=== PATIENT | female | born 1960 | race Caucasian/White ===

== ENCOUNTER 2017-12-06 01:27 | Observation (INO) ==
[2017-12-06] MEDS ORDERED: Naloxone 0.4 MG/ML INJ IVP PRN (03:53)
[2017-12-06] MEDS ORDERED: Acetaminophen 325 MG TABLET PO PRN (03:55)
[2017-12-06] MEDS ORDERED: 0.9 % Sodium Chloride 1,000 ML IVC SCH (04:00)
[2017-12-06] MEDS: traMADol 50 MG TABLET PO PRN ×2 (04:31→13:28)
--- NOTE | 2017-12-06 04:51 | Internal Med History&Physical ---
Date of Encounter: 12/07/17 Time of Encounter: 04:51 Internal Medicine - H&P: HPI Chief complaint: Right Knee Pain History of present illness: Ms. Muhammad is a 57 year old female with a past medical history of hypertension, hyperlipidemia, COPD, diabetes and postoperative day 2 status post right total knee replacement who presents with right knee pain. Patient states that she was doing well the day after her surgery. She was able to ambulate with a walker prior to discharge. She states that upon arrival to her home she was unable to get out of the car because of excruciating pain in her right knee. Patient was helped into her home with the aid of her family. She continued to have persistent pain despite pain medication. She reached out to with her orthopedic surgeon who advised her to come back in. Patient subsequently called EMS because her family was unable to get her back into the car because of the pain. Patient denies any fever, chills or shortness of breath. Past Med Surg Social Fam HX - Past Medical History Medical history: CHF, COPD, diabetes, thyroid disease Psychiatric history: anxiety, depression - Past Surgical History Surgical History: knee replacement, other Additional surgical history: uterine surgery, tubal, tonsils, adnoids, gallbladder - Social History Smoking Status: Current every day smoker Alcohol use: none Drug use: none - Family History Mother Living Status: Hx Family Cardiac Disorders: Yes (stroked, CAD) Hx Family Endocrine Disorder: Yes (DM) Internal Medicine - H&P: Meds Aspirin Enteric Coated [Aspirin EC] 325 mg PO BID #20 tablet. 12/04/17 [Rx] Breo Ellipta 200-25 Mcg INH 27.5 mcg NS BID 12/04/17 [History] Docusate [Colace] 100 mg PO DAILY PRN 12/04/17 [History] Duloxetine HCl [Cymbalta] 60 mg PO DAILY 12/04/17 [History] Furosemide [Lasix] 20 mg PO DAILY 12/04/17 [History] Gabapentin [Neurontin] 800 mg PO TID 12/04/17 [History] Levothyroxine [Synthroid] 125 mcg PO DAILY 12/04/17 [History] Losartan Potassium 25 mg PO DAILY 12/04/17 [History] Omeprazole [PriLOSEC] 20 mg PO DAILY 12/04/17 [History] OxyCODONE Immed Rel [Roxicodone 5 MG] 5 mg PO Q6HR PRN 5 Days #20 tablet [Rx] Senna-S Laxative Tablet 60 mg PO DAILY PRN 12/04/17 [History] Tiotropium [Spiriva] 18 mcg .ROUTE DAILY 12/04/17 [History] Trulicity 1.5 mg SQ QWEEK 12/04/17 [History] cloNIDine HCl [CloNIDine HCl] 0.1 mg PO HS 12/04/17 [History] 3 Allergy/AdvReac Type Severity Reaction Status Date / Time capsaicin Allergy See Verified 11/28/17 10:19 Comments lisinopril Allergy Dizziness Verified 11/28/17 10:19 All Systems PM: A 10-system review of systems was performed and is negative for pertinent findings except as documented above in the HPI. - Constitutional Constitutional: no chills, no fever(s), no night sweats - EENT Eyes: no change in vision, no discharge, no pain, no photophobia Ears: no ear discharge, no ear pain, no tinnitus Nose, mouth and throat: no dysphagia, no nasal discharge, no neck pain, no sore throat - Cardiovascular Cardiovascular ROS IM: no chest pain, no diaphoresis, no dyspnea, no lightheadedness, no palpitations, no syncope - Respiratory Respiratory: no cough, no dyspnea, no wheezing, no excessive phlegm production - Gastrointestinal Gastrointestinal: no abdominal pain, no diarrhea, no hematemesis, no hematochezia, no melena, no nausea, no vomiting - Genitourinary Genitourinary: no change in urinary stream, no dysuria, no flank pain, no hematuria - Musculoskeletal Musculoskeletal ROS IM: no numbness, no tingling - Integumentary Integumentary IM: no rash, no unusual bruising - Neurological Neurological ROS: no confusion, no convulsions, no focal weakness, no numbness, no tingling, no tremor(s) - Hematologic/Lymphatic Hematologic/Lymphatic: no easy bruising - Constitutional Vitals: Temp Pulse Resp BP Pulse Ox 98.9 F 81 18 143/84 92 12/06/17 04:32 12/06/17 04:32 12/06/17 04:32 12/06/17 04:32 12/06/17 04:32 Exam: General: Alert and oriented 3; lying in bed in no acute distress Skin:Normal color, no rash, no lesions. HEENT:EOM, pupils equal, round and reactive. Cardiovascular:Normal S1 & S2, no rubs, murmurs or gallops. No JVD. Pulse regular. Lungs:Normal breath sounds, no wheezes or crackles. Abdomen:Soft, non-tender, no rigidity. Extremities: Right knee appears erythematous, warm and mildly edematous. There is some oozing from the surgical incision site. Knee is tender to palpation. Patient has good pulses in the lower extremities. Neurological:Normal cognition and motor skills. Pulses:Carotid and radial pulses normal +2. Rest of the physical exam is non contributory Internal Med - H&P Results - Labs CBC & Chem 7: 12/06/17 04:26 12/06/17 04:26 - Assessment and plan (1) Status post total right knee replacement Current Visit: No Status: Acute Assessment and plan: Postop day 2 status post right total knee replacement now presenting with excruciating pain involving the same knee. Knee warm to palpation and mildly edematous with some oozing of blood. Patient afebrile but does have a elevated WBC of 17. This maybe reactionary however cannot r/o infection at this time though time course appears to be too acute. We will obtain a CT scan of the knee. Hold antibiotics until then. Pain control. Ortho to see patient in the AM (2) COPD (chronic obstructive pulmonary disease) Current Visit: No Status: Chronic Assessment and plan: No evidence of acute exacerbation. Stable Qualifiers: COPD type: unspecified COPD Qualified Code(s): J44.9 - Chronic obstructive pulmonary disease, unspecified (3) Type 2 diabetes mellitus Current Visit: No Status: Acute Assessment and plan: Blood glucose checks. Insulin sliding scale Qualifiers: Diabetes mellitus intermediate insulin use: unspecified termite inspector insulin use status Diabetes mellitus complication status: without complication Qualified Code(s): E11.9 - Type 2 diabetes mellitus without complications (4) Hypertension Current Visit: No Status: Chronic Qualifiers: Hypertension type: unspecified Qualified Code(s): I10 - Essential (primary ) hypertension (5) DVT prophylaxis Current Visit: Yes Status: Acute Assessment and plan: Pneumatic compression devices - Time Spent With Patient Total time spent is greater than 50% in coordination of care (as documented) at patient's floor/unit and/or counseling patient:
[2017-12-06 05:00] LABS: Basophils % 0.3 %; Eosinophils % 0.3 %; Immature Granulocytes % 0.7 % (0-4); Mean Corpuscular Volume 62.6 fL (83.0-100.0); Monocytes % 11.4 %
[2017-12-06 05:01] LABS: Basophils # 0.1 K/mcL (0.0-0.2); Eosinophils # 0.1 K/mcL (0.0-0.6); Hematocrit 30.1 % (35.3-44.9); Lymphocytes # 3.4 K/mcL (0.6-4.6); Mean Corpuscular HGB Conc 29.9 g/dL (31.6-35.5); Mean Corpuscular Hemoglobin 18.7 pg (28.0-33.3); Mean Platelet Volume 10.5 fL (9.4-12.4); Neutrophils # 12.1 K/mcL (1.6-8.9); Platelet Count 232 K/mcL (140-400); Red Blood Count 4.81 M/mcL (3.82-4.97); Red Cell Distribution Width 19.6 % (11.5-14.5); Segmented Neutrophils % 68.3 %
[2017-12-06 05:05] LABS: Prothrombin Time 11.1 Seconds (9.4-12.1)
[2017-12-06 05:20] LABS: Platelet Estimate Normal (Normal)
[2017-12-06] MEDS ORDERED: Isovue-370 500 ML INFUS..BTL IV ONE (05:20)
[2017-12-06 05:21] LABS: Anisocytosis 1+ (Not Present); Microcytosis Present (Not Present)
[2017-12-06 05:34] LABS: Alanine Aminotransferase 12 Units/L (7-52); Albumin 4.1 g/dL (3.5-5.7); Alkaline Phosphatase 96 Units/L (34-104); Aspartate Amino Transferase 14 Units/L (13-39); BUN/Creatinine Ratio 17 (6-26); Bilirubin,Total 0.3 mg/dL (0.3-1.0); Blood Urea Nitrogen 17 mg/dL (6-20); Calcium 8.9 mg/dL (8.6-10.3); Carbon Dioxide 27 mEq/L (23-29); Chloride 105 mEq/L (98-107); Globulin 2.1 g/dL (2.4-3.5); Glucose 133 mg/dL (70-105); Osmolality,Calculated 291 (280-300); Potassium 3.4 mEq/L (3.5-5.1); Sodium 139 mEq/L (136-145); Total Protein 6.2 g/dL (6.4-8.9); eGFR For Non-African Americans 59 (> 60)
--- NOTE | 2017-12-06 07:58 | Event Note ---
Date of Encounter: 12/06/17 Time of Encounter: 09:45 Ms Muhammad was admitted earlier this AM with severe R knee pain. She is s/p TKR. At this time she is still having a lot of pain. She has some swelling in her leg. Plan Ortho eval Duplex to r/o DVT Pain control.
[2017-12-06] MEDS: *HR* OxyCODONE Immed Rel 5 MG TABLET PO PRN ×2 (09:58→21:35)
--- NOTE | 2017-12-06 14:51 | Orthopedics Progress Note ---
Date of Encounter: 12/06/17 Time of Encounter: 14:44 Subjective Principal diagnosis: post-op pain Interval history: The patient was discharged late yesterday evening on postoperative #1 status post a right total knee arthroplasty. On the right home the pain became more severe and she is unable to bear weight. She was taken to the [facility] and was transferred back For further evaluation. Patient still reports the pain today. Reports no other complications and no falls on the ride home. Right lower extremity: Dressings in place and the patient clean dry and intact with mild spotting, mild swelling, positive tenderness palpation around the knee , calves are soft and nontender, neurovascularly intact distally. Range of motion of the knee 10 degrees to 40 degrees, limited by pain. CT scan: implants well fixed Doppler study: negative Assessment: Postoperative day #2 status post right total knee arthroplasty with well fixed implants. Patient experiencing acute postoperative pain increased once block fully wore off. Plan: We will add Toradol to her oxycodone Recommend PT see the patient again for range of motion and ambulation. Recommend discharge home tomorrow. Objective Vital signs: Vital Signs Temp Pulse Resp BP Pulse Ox 12/06/17 11:44 98.0 F 88 16 160/68 95 12/06/17 07:10 98.9 F 82 16 172/68 94 12/06/17 04:32 98.9 F 81 18 143/84 92 Intake and Output 12/05/17 12/06/17 12/06/17 23:59 07:59 15:59 Other: Weight 103.1 kg Blood Glucose* 108 112 Patient Weight 12/06/17 23:59 Weight 103.1 kg - Labs CBC & BMP: 12/06/17 04:26 12/06/17 04:26 Labs: Abnormal lab results WBC 17.7 K/mcL (4.3-11.1) H 12/06/17 04:26 Hgb 9.0 g/dL (11.5-15.4) L D 12/06/17 04:26 Hct 30.1 % (35.3-44.9) L 12/06/17 04:26 MCV 62.6 fL (83.0-100.0) L 12/06/17 04:26 MCH 18.7 pg (28.0-33.3) L 12/06/17 04:26 MCHC 29.9 g/dL (31.6-35.5) L 12/06/17 04:26 RDW 19.6 % (11.5-14.5) H 12/06/17 04:26 Neutrophils # 12.1 K/mcL (1.6-8.9) H 12/06/17 04:26 Monocytes # 2.0 K/mcL (0.0-1.3) H 12/06/17 04:26 Anisocytosis 1+ (Not Present) A 12/06/17 04:26 Microcytosis Present (Not Present) A 12/06/17 04:26 Potassium 3.4 mEq/L (3.5-5.1) L 12/06/17 04:26 Est GFR (Non-Af Amer) 59 (> 60) L 12/06/17 04:26 Glucose 133 mg/dL (70-105) H 12/06/17 04:26 POC Glucose 112 mg/dL (70-99) H 12/06/17 11:41 Serum Total Protein 6.2 g/dL (6.4-8.9) L 12/06/17 04:26 Globulin 2.1 g/dL (2.4-3.5) L 12/06/17 04:26 Consult Discharge Plan - Plan Referrals: Ralph Coughlin, T[employer] STAVE ASSEMBLER [Primary Care Provider] -
[2017-12-06] MEDS: Ketorolac 30 MG/ML VIAL IVP PRN (15:49)
[2017-12-07] MEDS: Ketorolac 30 MG/ML VIAL IVP PRN (03:11)
[2017-12-07] MEDS: traMADol 50 MG TABLET PO PRN (03:39)
[2017-12-07] MEDS: *HR* OxyCODONE Immed Rel 5 MG TABLET PO PRN (06:29)
[2017-12-07 07:12] VITALS: BP 150/69
[2017-12-07 07:20] LABS: Hemoglobin 8.7 g/dL (11.5-15.4); Mean Platelet Volume 10.2 fL (9.4-12.4)
[2017-12-07 07:22] LABS: Hematocrit 30.2 % (35.3-44.9); Immature Platelets 5.5 % (1.1-6.1); Mean Corpuscular HGB Conc 28.8 g/dL (31.6-35.5); Mean Corpuscular Hemoglobin 18.2 pg (28.0-33.3); Mean Corpuscular Volume 63.3 fL (83.0-100.0); Red Blood Count 4.77 M/mcL (3.82-4.97); Red Cell Distribution Width 19.1 % (11.5-14.5)
[2017-12-07 07:43] LABS: BUN/Creatinine Ratio 13 (6-26); Blood Urea Nitrogen 12 mg/dL (6-20); Calcium 8.8 mg/dL (8.6-10.3); Carbon Dioxide 27 mEq/L (23-29); Chloride 107 mEq/L (98-107); Glucose 127 mg/dL (70-105); Magnesium 2.2 mg/dL (1.6-2.6); Osmolality,Calculated 291 (280-300); Potassium 3.6 mEq/L (3.5-5.1); Sodium 140 mEq/L (136-145); eGFR For Non-African Americans > 60 (> 60)
--- NOTE | 2017-12-07 10:39 | Discharge Summary ---
- NOTES TO OUTPATIENT PROVIDER Notes to Outpatient Provider: Pt discharged following R TKA. Returned the next day due to pain. Seen by orthopedics and no acute issues. Seen by PT and OT. Recommended SNF and she declines and wants to go home. Date of Encounter: 12/07/17 Time of Encounter: 10:20 - Discharge Diagnosis (1) Pain in knee region after total knee replacement Priority: Primary Status: Acute Qualifiers: Encounter type: subsequent encounter Qualified Code(s): T84.84XD - Pain due to internal orthopedic prosthetic devices, implants and grafts, subsequent encounter; Z96.659 - Presence of unspecified artificial knee joint (2) Status post total right knee replacement Priority: Secondary Status: Acute (3) Hypertension Priority: Secondary Status: Chronic Qualifiers: Hypertension type: essential hypertension Qualified Code(s): I10 - Essential (primary) hypertension (4) COPD (chronic obstructive pulmonary disease) Priority: Secondary Status: Chronic Qualifiers: COPD type: unspecified COPD Qualified Code(s): J44.9 - Chronic obstructive pulmonary disease, unspecified (5) Type 2 diabetes mellitus Priority: Secondary Status: Chronic Qualifiers: Diabetes mellitus terminal worker insulin use: without terminal worker use Diabetes mellitus complication status: without complication Qualified Code(s): E11.9 - Type 2 diabetes mellitus without complications (6) Tobacco use Priority: Secondary Status: Chronic Hospital course: Ms. Muhammad is a 57 year old female with recent R TKA presented to ED with severe pain and was placed in observation. Ms Muhammad had R TKA on and went home on Friday. She developed increased pain and returned to ED. She was placed in observation. She was evaluated by orthopedics and placed on pain meds. She had duplex negative for DVT. Today she is feeling somewhat better. She was seen by PT and recommended SNF but she does not want to go. She is afebrile and ready for discharge home. She has pain meds prescribed when she left on Friday. - Time Spent with Patient Total time spent providing and/or coordinating discharge services: - Discharge Medications Home Medications: Aspirin Enteric Coated [Aspirin EC] 325 mg PO BID #20 tablet. 12/04/17 [Rx] Breo Ellipta 200-25 Mcg INH 27.5 mcg NS BID 12/04/17 [History] Docusate [Colace] 100 mg PO DAILY PRN 10/11/18 [History] Duloxetine HCl [Cymbalta] 60 mg PO DAILY 12/04/17 [History] Furosemide [Lasix] 20 mg PO DAILY 12/04/17 [History] Gabapentin [Neurontin] 800 mg PO TID 12/04/17 [History] Levothyroxine [Synthroid] 125 mcg PO DAILY 12/04/17 [History] Losartan Potassium 25 mg PO DAILY 12/04/17 [History] Omeprazole [PriLOSEC] 20 mg PO DAILY 12/04/17 [History] OxyCODONE Immed Rel [Roxicodone 5 MG] 5 mg PO Q6HR PRN 5 Days #20 tablet [Rx] Senna-S Laxative Tablet 60 mg PO DAILY PRN 12/04/17 [History] Tiotropium [Spiriva] 18 mcg .ROUTE DAILY 12/04/17 [History] Trulicity 1.5 mg SQ QWEEK 12/04/17 [History] cloNIDine HCl [CloNIDine HCl] 0.1 mg PO HS 12/04/17 [History] Acetaminophen [Tylenol] 650 mg PO Q6HR PRN tablet 12/07/17 [Rx] Allergies/Adverse Reactions: 3 Allergy/AdvReac Type Severity Reaction Status Date / Time capsaicin Allergy See Verified 11/28/17 10:19 Comments lisinopril Allergy Dizziness Verified 11/28/17 10:19 Date of admission: 12/06/17 03:38 Primary care physician: Ralph Coughlin CNP Consults: 12/06/17 05:19 Consult to Orthopedic Surgery [CONS] Routine Consulting Provider: Orthoped[facility] Reason for Consult: Right knee pain status post right total knee replacement Call Completed: No 12/06/17 18:26 Consult to Occupational Therapy [CONS] Routine Comment: Evaluate, develop and implement POC Reason for Consult: EVAL AND TREAT, RECENT RIGHT TOTAL KNEE REPLACEMENT Does patient have active BEDREST order?: No Is patient medically & hemodynamically stable?: Yes Consult to Physical Therapy [CONS] Routine Comment: Evaluate, develop and implement POC Reason for Consult: EVAL AND TREAT FOR RECENT RIGHT KNEE REPLACEMENT Does patient have active BEDREST order?: No Is patient medically & hemodynamically stable?: Yes Discharging clinician: Sander Avendaño Anticipated date of discharge: 12/07/17 - Constitutional Vitals: Temp Pulse Resp BP Pulse Ox 98.4 F 79 16 150/69 92 12/07/17 07:11 12/07/17 07:11 12/07/17 07:11 12/07/17 07:11 12/07/17 07:11 General appearance: Present: A&O X 3, pleasant Exam: See below - Head Head exam: Present: atraumatic, normocephalic - Eye Eye exam: Present: EOMI, conjuntiva pink - ENT ENT exam: Present: mucous membranes moist - Respiratory Respiratory exam: Present: CTAB. Absent: rales, rhonchi, wheezes - Cardiovascular Cardiovascular exam: Present: RRR. Absent: systolic murmur, tachycardia - GI/Abdominal GI/Abdominal exam: Present: soft. Absent: tenderness - Extremities Exam Extremities exam: Present: tenderness, warm - Neurological Exam Neurological exam: Present: alert, oriented X3, no focal deficits - Skin Skin exam: Present: dry, warm - Patient Status Disposition: Home Health Service Condition: Good Functional capacity at discharge: independent ambulation Overall status at discharge: patient is progressing back to baseline - Discharge Instructions Instructions: Heart Failure (DC), Diabetes Mellitus Type 2 in Adults (DC), Chronic Obstructive Pulmonary Disease (DC), Chronic Hypertension (DC), Anemia ( GEN) Follow Up With: Ralph Coughlin CNP [Primary Care Provider] - - Diet and Activity Activity: as per physical therapy, increase activity as tolerated Diet: advance to your usual diet
--- NOTE | 2017-12-07 10:43 | Physician Discharge Referral ---
Home Health/Hosp Referral Info Transfer to: Home Health Provider in Charge Post Discharge: PCP - Diagnosis (1) Pain in knee region after total knee replacement Priority: Primary Status: Acute (2) Status post total right knee replacement Priority: Secondary Status: Acute (3) Hypertension Priority: Secondary Status: Chronic (4) COPD (chronic obstructive pulmonary disease) Priority: Secondary Status: Chronic (5) Type 2 diabetes mellitus Priority: Secondary Status: Acute (6) Tobacco use Priority: Secondary Status: Chronic - Respiratory Orders None Smoking Cessation: Smoking cessation has been advised. For more information, call the [place] Tobacco Quit Line at 8-697-YKMQ-NOW. - Diet/Nutrition Diet/Nutrition Orders: Cardiac, No Concentrated Sweets - Activity Activity Orders: Ambulate - Services Needed Following services are medically necessary services: Physical Therapy, Occupational Therapy - Transfer Medications Home Medications: Aspirin Enteric Coated [Aspirin EC] 325 mg PO BID #20 tablet.dr 12/04/17 [Rx] Breo Ellipta 200-25 Mcg INH 27.5 mcg NS BID 12/04/17 [History] Docusate [Colace] 100 mg PO DAILY PRN 12/04/17 [History] Duloxetine HCl [Cymbalta] 60 mg PO DAILY 12/04/17 [History] Furosemide [Lasix] 20 mg PO DAILY 12/04/17 [History] Gabapentin [Neurontin] 800 mg PO TID 12/04/17 [History] Levothyroxine [Synthroid] 125 mcg PO DAILY 12/04/17 [History] Losartan Potassium 25 mg PO DAILY 12/04/17 [History] Omeprazole [PriLOSEC] 20 mg PO DAILY 12/04/17 [History] OxyCODONE Immed Rel [Roxicodone 5 MG] 5 mg PO Q6HR PRN 5 Days #20 tablet [Rx] Senna-S Laxative Tablet 60 mg PO DAILY PRN 12/04/17 [History] Tiotropium [Spiriva] 18 mcg .ROUTE DAILY 12/04/17 [History] Trulicity 1.5 mg SQ QWEEK 12/04/17 [History] cloNIDine HCl [CloNIDine HCl] 0.1 mg PO HS 12/04/17 [History] Acetaminophen [Tylenol] 650 mg PO Q6HR PRN tablet 12/07/17 [Rx] Allergies/Adverse Reactions: 3 Allergy/AdvReac Type Severity Reaction Status Date / Time capsaicin Allergy See Verified 11/28/17 10:19 Comments lisinopril Allergy Dizziness Verified 11/28/17 10:19 Certification: Further, I certify that my clinical findings support that this patient is homebound (i.e. absences from home require considerable and taxing effort and are for medical reasons or restoration services or infrequently or short duration when for other reasons) because: Homebound Reason: Post-surgery restriction and or conditions limit ability to leave home Attestation: My signature below is to certify that this patient is under my care and that I, or nurse practitioner, or a physician's assistant counsel working with me, has a face-to -face encounter with this patient.
--- NOTE | 2017-12-07 10:56 | Orthopedics Progress Note ---
Date of Encounter: 12/07/17 Time of Encounter: 10:53 Subjective Principal diagnosis: post-op pain Interval history: Patient reports that the pain is improved although still significant. She had an evaluation with PT this morning who recommended acute care rehabilitation. Patient has declined this and wants to go home. Home health therapy is scheduled for tomorrow morning. Right lower extremity: Dressings in place which was changed, and Tj wrap is in place with minimal spotting at the distal end of the incision line. mild swelling, positive tenderness palpation around the knee, calves are soft and nontender, neurovascularly intact distally. Range of motion of the knee 0 degrees to 50 degrees, limited by pain. CT scan: implants well fixed Doppler study: negative Assessment: Postoperative day #3 status post right total knee arthroplasty with well fixed implants. Patient experiencing acute postoperative pain. Plan: The patient like to go home now. Recommend discharge home. She states she has enough help at home and believe she will improve with therapy tomorrow. Objective Vital signs: Vital Signs Temp Pulse Resp BP Pulse Ox 12/07/17 07:11 98.4 F 79 16 150/69 92 12/07/17 03:47 98.7 F 89 20 173/60 97 12/06/17 22:31 98.1 F 88 17 187/77 96 12/06/17 19:09 98.4 F 89 18 161/65 96 12/06/17 11:44 98.0 F 88 16 160/68 95 Intake and Output 12/06/17 12/07/17 12/07/17 23:59 07:59 15:59 Intake Total 0 / 0 0 / 0 Output Total 0 / 0 300 / 300 Balance 0 / 0 -300 / -300 Intake: Oral 0 / 0 0 / 0 Output: Urine 0 / 0 300 / 300 Other: Weight 102.8 kg Blood Glucose* 197 139 Patient Weight 12/07/17 23:59 Weight 102.8 kg - Labs CBC & BMP: 12/07/17 06:38 12/07/17 06:38 Labs: Abnormal lab results WBC 12.2 K/mcL (4.3-11.1) H 12/07/17 06:38 Hgb 8.7 g/dL (11.5-15.4) L 12/07/17 06:38 Hct 30.2 % (35.3-44.9) L 12/07/17 06:38 MCV 63.3 fL (83.0-100.0) L 12/07/17 06:38 MCH 18.2 pg (28.0-33.3) L 12/07/17 06:38 MCHC 28.8 g/dL (31.6-35.5) L 12/07/17 06:38 RDW 19.1 % (11.5-14.5) H 12/07/17 06:38 Neutrophils # 12.1 K/mcL (1.6-8.9) H 12/06/17 04:26 Monocytes # 2.0 K/mcL (0.0-1.3) H 12/06/17 04:26 Anisocytosis 1+ (Not Present) A 12/06/17 04:26 Microcytosis Present (Not Present) A 12/06/17 04:26 Glucose 127 mg/dL (70-105) H 12/07/17 06:38 POC Glucose 139 mg/dL (70-99) H 12/07/17 07:07 Serum Total Protein 6.2 g/dL (6.4-8.9) L 12/06/17 04:26 Globulin 2.1 g/dL (2.4-3.5) L 12/06/17 04:26 Consult Discharge Plan - Plan Referrals: Ralph Coughlin, TRENCH DIGGER HELPER [Primary Care Provider] -
== END 2017-12-07 15:23 | disposition home health service (06) ==
LOC: 3NENU → SUATTDRO 03:38
PROVIDERS: ADMIT Internal Medicine; ATTEND Internal Medicine

== ENCOUNTER 2019-01-04 13:46 | Inpatient (IN) ==
[~2019-01-04 13:46] MED LIST: Total Joint Mixture (50 ml) IR ONE
[2019-01-04] MEDS ORDERED: CeFAZolin Syr 2,000MG/20 ML 2,000 MG/20 ML SYRINGE IVPB ONE (14:32)
[2019-01-04] MEDS ORDERED: Albuterol 2.5 MG/3 ML NEBULIZER IH PRN (14:32)
[2019-01-04] MEDS ORDERED: Acetaminophen IV 1,000 MG/100 ML INFUS..BTL IVPB ONE (14:44)
[2019-01-04] MEDS ORDERED: Famotidine 20 MG/2 ML VIAL IVP ONE (14:44)
[2019-01-04] MEDS ORDERED: Celecoxib 100 MG CAPSULE PO ONE (14:45)
[2019-01-04] MEDS ORDERED: Pregabalin 75 MG CAPSULE PO ONE (14:45)
[2019-01-04] MEDS ORDERED: Ringers Solution, Lactated 1,000 ML IVC SCH ×2 (14:45→19:27)
[2019-01-04] MEDS ORDERED: Lidocaine -MPF 2% 2 ML VIAL ONE ×2 (15:23→18:13)
[2019-01-04] MEDS ORDERED: Ethanol\\Acetic Acid\\Na Ace\\Ben 1,000 ML IRRIG.SOLN IR ONE (15:23)
[2019-01-04] MEDS ORDERED: Propofol 500 MG/50 ML INFUS..BTL ONE ×2 (15:24→16:44)
[2019-01-04] MEDS ORDERED: *HR* Propofol 200 MG/20 ML VIAL IVP ONE (15:24)
[2019-01-04] MEDS ORDERED: *HR* Midazolam HCl 2 MG/2 ML VIAL ONE (15:27)
[2019-01-04] MEDS ORDERED: *HR* FentaNYL (PF) 100 MCG/2 ML VIAL ONE (15:27)
[2019-01-04] MEDS ORDERED: Ondansetron 4 MG/2 ML VIAL IVP ONE (16:28)
[2019-01-04] MEDS ORDERED: *HR* OxyCODONE Immed Rel 5 MG TABLET PO PRN (16:28)
[2019-01-04] MEDS ORDERED: *HR* Promethazine 25 MG/ML VIAL IVP PRN ×2 (16:28→19:27)
[2019-01-04 18:20] LABS: Hematocrit 33.4 % (35.3-44.9); Hemoglobin 9.9 g/dL (11.5-15.4)
[2019-01-04] MEDS ORDERED: D5% in Water 1,000 ML IVC PRN (19:27)
[2019-01-04] MEDS ORDERED: Naloxone 0.4 MG/ML INJ IVP PRN (19:27)
[2019-01-04] MEDS ORDERED: (Dulaglutide [Trulicity] 1.5 MG) SQ SCH (19:27)
[2019-01-04] MEDS ORDERED: Ibuprofen 600 MG TABLET PO PRN (19:27)
[2019-01-04] MEDS ORDERED: MOM Conc 10 ML UD.LIQ PO PRN (19:27)
[2019-01-04] MEDS ORDERED: Dextrose Gel 15 GM/37.5 ML TUBE PO PRN ×2 (19:27)
[2019-01-04] MEDS ORDERED: Temazepam 15 MG CAPSULE PO PRN (19:27)
[2019-01-04] MEDS ORDERED: *HR* Dextrose 50 % in Water (Syg) 50 ML SYRINGE IVP PRN (19:27)
[2019-01-04] MEDS ORDERED: Ondansetron 4 MG/2 ML VIAL IVP PRN (19:27)
[2019-01-04] MEDS ORDERED: Ondansetron ODT 4 MG TAB.RAPDIS PO PRN (19:27)
[2019-01-04] MEDS ORDERED: Sennosides 8.6 MG TABLET PO PRN (19:27)
[2019-01-04] MEDS: *HR* OxyCODONE Immed Rel 5 MG TABLET PO PRN (19:46)
[2019-01-04] MEDS: *HR* Metformin 500 MG TABLET PO SCH (21:39)
[2019-01-04] MEDS: cloNIDine HCl 0.1 MG TABLET PO SCH (21:40)
[2019-01-04] MEDS: BuPROPion SR (12 HR) 150 MG TABLET PO SCH (21:40)
[2019-01-04] MEDS: rOPINIRole 1 MG TABLET PO SCH (21:40)
[2019-01-04] MEDS: HYDROcodone BIT/Homatropine 5 MG TABLET PO PRN (21:40)
[2019-01-04] MEDS: Gabapentin 400 MG CAPSULE PO SCH (21:40)
[2019-01-04] MEDS: Insulin LISPRO 300 UNITS/3 ML VIAL SQ SCH ×2 (21:41)
[2019-01-05 02:19] LABS: BUN/Creatinine Ratio 12 (6-26); Blood Urea Nitrogen 12 mg/dL (6-20); Calcium 8.7 mg/dL (8.6-10.3); Carbon Dioxide 17 mEq/L (23-29); Chloride 111 mEq/L (98-107); Glucose 87 mg/dL (70-105); Osmolality,Calculated 289 (280-300); Potassium 4.6 mEq/L (3.5-5.1); Sodium 140 mEq/L (136-145); eGFR For African Americans > 60 (> 60); eGFR For Non-African Americans 59 (> 60)
[2019-01-05 04:48] LABS: Basophils % 0.2 %; Eosinophils % 0.6 %; Hemoglobin 9.3 g/dL (11.5-15.4); Immature Granulocytes % 0.5 % (0-4)
[2019-01-05 04:50] LABS: Eosinophils # 0.1 K/mcL (0.0-0.6); Hematocrit 31.2 % (35.3-44.9); Immature Platelets 3.7 % (1.1-6.1); Lymphocytes # 0.2 K/mcL (0.6-4.6); Lymphocytes % 1.9 %; Mean Corpuscular HGB Conc 29.8 g/dL (31.6-35.5); Mean Corpuscular Hemoglobin 18.8 pg (28.0-33.3); Mean Platelet Volume 10.2 fL (9.4-12.4); Monocytes # 0.4 K/mcL (0.0-1.3); Monocytes % 3.7 %; Platelet Count 280 K/mcL (140-400); Red Blood Count 4.95 M/mcL (3.82-4.97); Red Cell Distribution Width 21.3 % (11.5-14.5); Segmented Neutrophils % 93.1 %; White Blood Count 10.7 K/mcL (4.3-11.1)
[2019-01-05 05:24] LABS: Anisocytosis 1+ (Not Present); Hypochromasia Present (Not Present); Microcytosis Present (Not Present); Ovalocytes 1+ (Not Present)
[2019-01-05 05:25] LABS: Platelet Estimate Normal (Normal); Polychromasia 1+ (Not Present)
[2019-01-05] MEDS ORDERED: Ketorolac 30 MG/ML VIAL IVP PRN (06:00)
[2019-01-05] MEDS: Venlafaxine XR (24 HR) 75 MG CAP.ER.24H PO SCH (08:42)
[2019-01-05] MEDS: BuPROPion SR (12 HR) 150 MG TABLET PO SCH ×2 (08:43→20:35)
[2019-01-05] MEDS: Gabapentin 400 MG CAPSULE PO SCH ×3 (08:43→21:34)
[2019-01-05] MEDS: Ascorbic Acid 500 MG TABLET PO SCH ×2 (08:43→20:18)
[2019-01-05] MEDS: Furosemide 20 MG TABLET PO SCH (08:43)
[2019-01-05] MEDS: Multivit/Ca/Min/Fe/FA 1 TAB TABLET PO SCH (08:43)
[2019-01-05] MEDS: *HR* Metformin 500 MG TABLET PO SCH ×2 (08:43→20:35)
[2019-01-05] MEDS: hydroCHLOROthiazide 25 MG TABLET PO SCH (08:44)
[2019-01-05] MEDS: Nicotine 14 MG PATCH.TD24 TD SCH (08:44)
[2019-01-05] MEDS ORDERED: Famotidine 20 MG TABLET PO ONE (09:52)
[2019-01-05] MEDS: Budesonide/Formoterol 80/4.5 1 PUFF INH IH SCH (10:47)
[2019-01-05] MEDS: *HR* OxyCODONE Immed Rel 5 MG TABLET PO PRN (12:36)
[2019-01-05] MEDS ORDERED: Lidocaine -MPF 1% 5 ML AMPUL INFILT ONE (15:03)
[2019-01-05] MEDS ORDERED: *HR* Enoxaparin 30 MG/0.3 ML SYRINGE SQ SCH (18:00)
[2019-01-05] MEDS: cloNIDine HCl 0.1 MG TABLET PO SCH (20:34)
[2019-01-05] MEDS: *HR* Enoxaparin 30 MG/0.3 ML SYRINGE SQ SCH (20:34)
[2019-01-05] MEDS: rOPINIRole 1 MG TABLET PO SCH (20:35)
[2019-01-05] MEDS: Insulin LISPRO 300 UNITS/3 ML VIAL SQ SCH ×2 (20:35→20:36)
[2019-01-06 04:38] LABS: Calcium 8.3 mg/dL (8.6-10.3); Potassium 4.3 mEq/L (3.5-5.1)
[2019-01-06 05:22] LABS: Basophils % 0.2 %; Mean Platelet Volume 10.2 fL (9.4-12.4)
[2019-01-06 05:23] LABS: Eosinophils # 0.9 K/mcL (0.0-0.6); Eosinophils % 7.5 %; Hematocrit 33.6 % (35.3-44.9); Immature Granulocytes % 0.8 % (0-4); Lymphocytes # 0.5 K/mcL (0.6-4.6); Mean Corpuscular HGB Conc 29.8 g/dL (31.6-35.5); Mean Corpuscular Hemoglobin 18.8 pg (28.0-33.3); Mean Corpuscular Volume 63.3 fL (83.0-100.0); Monocytes # 0.3 K/mcL (0.0-1.3); Monocytes % 2.6 %; Neutrophils # 10.3 K/mcL (1.6-8.9); Platelet Count 314 K/mcL (140-400); Red Blood Count 5.31 M/mcL (3.82-4.97); Red Cell Distribution Width 21.1 % (11.5-14.5); Segmented Neutrophils % 84.9 %; White Blood Count 12.1 K/mcL (4.3-11.1)
[2019-01-06 05:37] LABS: Anisocytosis 2+ (Not Present)
[2019-01-06 05:38] LABS: Hypochromasia Present (Not Present); Microcytosis Present (Not Present); Ovalocytes 1+ (Not Present); Platelet Estimate Normal (Normal)
[2019-01-06] MEDS: *HR* Enoxaparin 30 MG/0.3 ML SYRINGE SQ SCH ×2 (06:43→18:51)
[2019-01-06] MEDS: Budesonide/Formoterol 80/4.5 1 PUFF INH IH SCH (07:35)
[2019-01-06] MEDS: hydroCHLOROthiazide 25 MG TABLET PO SCH (08:53)
[2019-01-06] MEDS: Furosemide 20 MG TABLET PO SCH (08:53)
[2019-01-06] MEDS: Nicotine 14 MG PATCH.TD24 TD SCH (09:53)
[2019-01-06] MEDS: BuPROPion SR (12 HR) 150 MG TABLET PO SCH ×2 (09:54→21:50)
[2019-01-06] MEDS: Multivit/Ca/Min/Fe/FA 1 TAB TABLET PO SCH (09:54)
[2019-01-06] MEDS: *HR* Metformin 500 MG TABLET PO SCH ×2 (09:54→16:27)
[2019-01-06] MEDS: Venlafaxine XR (24 HR) 75 MG CAP.ER.24H PO SCH (09:54)
[2019-01-06] MEDS: Ascorbic Acid 500 MG TABLET PO SCH ×2 (09:54→16:15)
[2019-01-06] MEDS ORDERED: Aminoglycoside Consult 1 EACH MC ONE (10:14)
[2019-01-06] MEDS: Famotidine 20 MG TABLET PO SCH ×2 (12:06→21:53)
[2019-01-06] MEDS: HYDROcodone BIT/Homatropine 5 MG TABLET PO PRN (14:39)
[2019-01-06] MEDS: traMADol 50 MG TABLET PO PRN (16:26)
[2019-01-06] MEDS ORDERED: DAPTOmycin 500 MG in 0.9 % Sodium Chloride 100 ML IVPB SCH (17:00)
[2019-01-06] MEDS: *HR* HYDROcodone/Acet 7.5/325 mg TABLET PO PRN (21:50)
[2019-01-06] MEDS: cloNIDine HCl 0.1 MG TABLET PO SCH (21:51)
[2019-01-06] MEDS: rOPINIRole 1 MG TABLET PO SCH (21:51)
[2019-01-06] MEDS: Insulin LISPRO 300 UNITS/3 ML VIAL SQ SCH ×2 (21:51)
[2019-01-07] MEDS: traMADol 50 MG TABLET PO PRN ×2 (02:05→08:39)
[2019-01-07 02:37] LABS: Hematocrit 26.2 % (35.3-44.9); Immature Platelets 4.3 % (1.1-6.1); Mean Corpuscular HGB Conc 30.5 g/dL (31.6-35.5); Mean Corpuscular Hemoglobin 18.7 pg (28.0-33.3); Mean Corpuscular Volume 61.2 fL (83.0-100.0); Mean Platelet Volume 9.5 fL (9.4-12.4); Red Blood Count 4.28 M/mcL (3.82-4.97); Red Cell Distribution Width 19.9 % (11.5-14.5); White Blood Count 9.9 K/mcL (4.3-11.1)
[2019-01-07 02:54] LABS: BUN/Creatinine Ratio 24 (6-26); Blood Urea Nitrogen 22 mg/dL (6-20); Calcium 8.3 mg/dL (8.6-10.3); Carbon Dioxide 22 mEq/L (23-29); Chloride 105 mEq/L (98-107); Glucose 80 mg/dL (70-105); Osmolality,Calculated 278 (280-300); Potassium 4.2 mEq/L (3.5-5.1); Sodium 133 mEq/L (136-145); eGFR For African Americans > 60 (> 60); eGFR For Non-African Americans > 60 (> 60)
[2019-01-07] MEDS: *HR* HYDROcodone/Acet 7.5/325 mg TABLET PO PRN ×2 (04:18→12:55)
[2019-01-07] MEDS: *HR* Enoxaparin 30 MG/0.3 ML SYRINGE SQ SCH (06:25)
[2019-01-07] MEDS: Budesonide/Formoterol 80/4.5 1 PUFF INH IH SCH (08:01)
[2019-01-07] MEDS: Ascorbic Acid 500 MG TABLET PO SCH (08:30)
[2019-01-07] MEDS: Venlafaxine XR (24 HR) 75 MG CAP.ER.24H PO SCH (08:30)
[2019-01-07] MEDS: BuPROPion SR (12 HR) 150 MG TABLET PO SCH (08:30)
[2019-01-07] MEDS: Famotidine 20 MG TABLET PO SCH (08:30)
[2019-01-07] MEDS: *HR* Metformin 500 MG TABLET PO SCH (08:30)
[2019-01-07] MEDS: hydroCHLOROthiazide 25 MG TABLET PO SCH (08:31)
[2019-01-07] MEDS: Furosemide 20 MG TABLET PO SCH (08:31)
[2019-01-07] MEDS: Nicotine 14 MG PATCH.TD24 TD SCH (08:36)
[2019-01-07] MEDS: Multivit/Ca/Min/Fe/FA 1 TAB TABLET PO SCH (08:39)
[2019-01-07 12:38] VITALS: BP 119/74
[2019-01-07] MEDS ORDERED: *HR* Metformin 500 MG TABLET PO SCH (17:00)
[2019-01-07] MEDS ORDERED: DAPTOmycin 500 MG in 0.9 % Sodium Chloride 100 ML IVPB SCH (19:00)
== END 2019-01-07 16:52 | disposition home health service (06) | DRG 302 ==
LOC: SAMDAY 13:46 → 3NENU 19:24
PROVIDERS: ADMIT Orthopaedic Surgery; ATTEND Orthopaedic Surgery